=== PATIENT | female | born 1970 | race Caucasian/White ===

== ENCOUNTER 2019-09-28 16:06 | Emergency (ER) | payer OTHER ==
[~2019-09-28] VITALS: Ht 177.8 cm; Wt 75.0 kg
[2019-09-28] MEDS ORDERED: ONDANSETRON HCL 4MG/2ML INJ IV STA (16:55)
[2019-09-28] MEDS ORDERED: SODIUM CHLORIDE 0.9% 1,000 ML IV ONE (16:55)
[2019-09-28] MEDS ORDERED: FAMOTIDINE 20MG/2ML VIAL IV ONE (17:15)
[2019-09-28] MEDS ORDERED: LORAZEPAM 2MG/ML CPJ IV ONE (17:15)
[2019-09-28] MEDS ORDERED: METHYLPREDNISOLONE SOD SUCC 125 MG/2 ML VIAL IV ONE (17:15)
[2019-09-28] MEDS ORDERED: DIPHENHYDRAMINE 50MG/ML VIAL IV ONE (17:15)
[2019-09-28 17:39] LABS: CHLORIDE 110 mEq/L (98-107)
[2019-09-28 17:41] LABS: BASOPHILS % 0.4 % (0.0-2.0); EOSINOPHILS % 5.7 % (0.0-5.0); HEMATOCRIT. 40.9 % (36.0-48.0); HEMOGLOBIN. 13.8 g/dL (12.0-16.0); LYMPHOCYTES % 19.7 % (20.0-50.0); MEAN CORPUSCULAR HEMOGLOBIN 31.5 pg (28.0-32.0); MEAN PLATELET VOLUME 9.4 fl (7.4-10.4); MONOCYTES % 7.2 % (2.0-8.0); PLATELET 212 x1000/uL (130-400)
[2019-09-28 17:43] LABS: ETHANOL BLOOD < 10 mg/dL
[2019-09-28 19:35] VITALS: BP 121/71
== END 2019-09-28 21:15 | disposition home or self-care (01) ==
LOC: ER 16:06
DX: T78.49XA Other allergy, initial encounter (principal); X30.XXXA Exposure to excessive natural heat, initial encounter; R06.02 Shortness of breath
CPT/HCPCS: 36415; 71045; 80053; 80320; 85025; 96374; 96375; 99291; J1200; J2060; J2405; J2930; J3490; J7030; G0480

== ENCOUNTER 2020-01-12 22:34 | Emergency (ER) | payer SELFPAY ==
[~2020-01-12] VITALS: Ht 175.3 cm; Wt 84.6 kg
[2020-01-12] MEDS ORDERED: METHYLPREDNISOLONE SOD SUCC 125 MG/2 ML VIAL IV ONE (22:45)
[2020-01-12] MEDS ORDERED: DIPHENHYDRAMINE 50MG/ML VIAL IV ONE (22:45)
[2020-01-12] MEDS ORDERED: FAMOTIDINE 20MG/2ML VIAL IV ONE (22:45)
[2020-01-12] MEDS ORDERED: SODIUM CHLORIDE 0.9% 1,000 ML IV ONE (22:46)
[2020-01-13 02:45] VITALS: BP 113/61
== END 2020-01-13 02:48 | disposition home or self-care (01) ==
LOC: ER 22:34
DX: T45.0X5A Adverse effect of antiallergic and antiemetic drugs, initial encounter (principal); Y92.89 Other specified places as the place of occurrence of the external cause
CPT/HCPCS: 96374; 96375; 99284; J1200; J2930; J3490; J7030